=== PATIENT | female | born 1990 | race Hispanic/Latino ===

== ENCOUNTER 2020-08-08 08:28 | Emergency (ER) | payer SELFPAY ==
[2020-08-08 09:16] VITALS: BP 105/60
[2020-08-08 09:21] LABS: Basophils # (Auto) 0.1 K/mm3 (0.0-0.1); Basophils % (Auto) 0.7 % (0.0-1.8); Eosinophils # (Auto) 0.1 K/mm3 (0.0-0.4); Hematocrit 37.8 % (30.3-42.9); Lymphocytes # (Auto) 2.1 K/mm3 (1.2-5.4); Mean Corpuscular HGB Conc 35 % (30-34); Mean Corpuscular Volume 97 fl (79-97); Monocytes # (Auto) 0.7 K/mm3 (0.0-0.8); Monocytes % (Auto) 7.4 % (0.0-7.3); Platelet Count 390 K/mm3 (140-440); Red Blood Count 3.91 M/mm3 (3.65-5.03); Red Cell Distribution Width 12.5 % (13.2-15.2)
[2020-08-08 09:41] LABS: BUN/Creatinine Ratio 19; Blood Urea Nitrogen 15 mg/dL (7-17); Calcium 9.1 mg/dL (8.4-10.2); Hemolysis Index 9
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
[2020-08-08 10:16] LABS: Bilirubin,Urine NEG (Negative); Blood,Urine SM (Negative); Color,Urine Yellow (Yellow); Mucus,Urine 3+ /HPF; Urobilinogen,Urine < 2.0 mg/dL (<2.0)
[2020-08-08 10:21] LABS: HCG Qualitative,Urine Negative (Negative)
[2020-08-08 10:26] LABS: Benzodiazepines Screen,Urine Negative; Cocaine Screen,Urine Negative; Methadone Screen,Urine Negative; Opiate Screen,Urine Negative
[2020-08-08 10:47] LABS: Amphetamine Screen,Urine Positive; Cannabinoid Screen,Urine Positive
== END 2020-08-08 10:45 | disposition left against medical advice (07) ==
LOC: ED 08:28
DX: S09.90XA Unspecified injury of head, initial encounter (principal); E03.9 Hypothyroidism, unspecified; G43.909 Migraine, unspecified, not intractable, without status migrainosus; F15.90 Other stimulant use, unspecified, uncomplicated; F17.200 Nicotine dependence, unspecified, uncomplicated; Z79.899 Other long term (current) drug therapy; Z98.890 Other specified postprocedural states; Z20.822 Contact with and (suspected) exposure to COVID-19; Y04.8XXA Assault by other bodily force, initial encounter; Y93.89 Activity, other specified; Y92.89 Other specified places as the place of occurrence of the external cause; Y99.8 Other external cause status
CPT/HCPCS: 36415; 80048; 80307; 81001; 81025; 85025; 99283; U0003; 80320; G0480

== ENCOUNTER 2020-08-09 11:00 | Emergency (ER) | payer SELFPAY ==
[2020-08-09 11:19] VITALS: BP 91/56
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
== END 2020-08-09 13:33 | disposition left against medical advice (07) ==
LOC: ED 11:00
DX: F25.9 Schizoaffective disorder, unspecified (principal); F17.200 Nicotine dependence, unspecified, uncomplicated; Z00.8 Encounter for other general examination
CPT/HCPCS: 99283

== ENCOUNTER 2020-11-18 08:41 | Emergency (ER) | payer OTHER, SELFPAY ==
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
--- NOTE | 2020-11-18 11:11 | Event Note ---
Date: 11/18/20 I attempted to evaluated the patient today. She is lying down in a deep sleep or just refuses to cooperate. She is in the hallway on the chair bench. The patient slightly arouses after several tactile stimuli but is unable to engage in the evaluation. The patient will be reassessed tomorrow.
[2020-11-18 11:49] LABS: Bacteria,Urine 1+ /HPF (Negative); Bilirubin,Urine NEG (Negative); Blood,Urine SM (Negative); Color,Urine Yellow (Yellow); Mucus,Urine 1+ /HPF; Protein,Urine <15 mg/dL mg/dL (Negative); Urobilinogen,Urine < 2.0 mg/dL (<2.0)
[2020-11-18 11:51] LABS: Cocaine Screen,Urine Negative; Methadone Screen,Urine Negative; Opiate Screen,Urine Negative
[2020-11-18 12:04] LABS: Amphetamine Screen,Urine PRESUMPTIVE POSITIVE; Benzodiazepines Screen,Urine PRESUMPTIVE POSITIVE; Cannabinoid Screen,Urine PRESUMPTIVE POSITIVE
[2020-11-18 14:47] LABS: Basophils # (Auto) 0.1 K/mm3 (0.0-0.1); Basophils % (Auto) 1.1 % (0.0-1.8); Eosinophils % (Auto) 0.6 % (0.0-4.3); Hematocrit 35.6 % (30.3-42.9); Hemoglobin 12.1 gm/dl (10.1-14.3); Lymphocytes # (Auto) 1.8 K/mm3 (1.2-5.4); Lymphocytes % (Auto) 34.3 % (13.4-35.0); Mean Corpuscular HGB Conc 34 % (30-34); Mean Corpuscular Volume 95 fl (79-97); Monocytes # (Auto) 0.3 K/mm3 (0.0-0.8); Monocytes % (Auto) 5.4 % (0.0-7.3); Platelet Count 429 K/mm3 (140-440); Red Blood Count 3.75 M/mm3 (3.65-5.03); Red Cell Distribution Width 12.9 % (13.2-15.2)
[2020-11-18 14:54] LABS: Blood Urea Nitrogen 10 mg/dL (7-17); Calcium 8.5 mg/dL (8.4-10.2); Hemolysis Index 4
[2020-11-18 14:55] LABS: BUN/Creatinine Ratio 17
--- NOTE | 2020-11-19 10:15 | Event Note ---
S: Sleeping O: Stable vital signs A: Acute psychosis patient is medically clear for psychiatric care, polysubstance abuse coronavirus PCR negative P: Awaiting treatment recommendations by psychiatric team
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
[2020-11-19] MEDS ORDERED: risperiDONE 1 MG TAB PO SCH (22:00)
[2020-11-20 08:54] VITALS: BP 110/64
--- NOTE | 2020-11-20 10:00 | Progress Note ---
Subjective - Reason for Consult Consult date: 11/27/20 Reason for consult: psychosis - Chief Complaint Chief complaint: The patient was seen in the [facility] waiting room. The patient reports that she is doing well. She is focused on discharge. She reports sleep and appetite as good. She denies any current suicidal/homicidal ideation and denies hallucinations. Patient is waiting for her father to pick her up. REVIEW OF SYSTEMS Constitutional: Negative for weight loss ENT: Negative for stridor Respiratory: Negative for cough or hemoptysis All other systems reviewed and are negative MENTAL STATUS EXAMINATION General Appearance and Behavior: Age appropriate, wearing appropriate clothes, cooperative, polite with questioning, fair eye contact, calm Cooperation: cooperative Psychomotor Behavior: Psychomotor normal Mood: "good" Affect and affective range: congruent with stated mood Thought Process: goal directed Thought Content: Denies SI Speech: Normal volume, Regular rate and rhythm Suicidal Ideation: Denies Homicidal Ideation: Denies hallucination: Denies Delusions: None elicited Impulse Control: Intact Insight and Judgment: good Memory: Intact Attention: attentive, engaging Orientation: Alert and oriented Diagnoses: Schizophrenia-F20.9 Treatment Plan Continue- Risperdal 1mg po QHS PSYCHOTHERAPY: Supportive psychotherapy provided MEDICAL: Per primary team DELIRIUM PRECAUTIONS: Please re-orient patient frequently, keep lights on during the day, and minimize benzodiazepines and opiates as these medications could worsen patient's confusion. LICENSED OCCUPATIONAL THERAPIST: Per medical team DISPOSITION: Do not recommend acute psychiatric inpatient treatment Will sign off. The patient should be compliant with medications, not to use drugs and not to drink alcohol. The patient understands that if suicidal ideas, homicidal ideas or any endangering thoughts/behavior should arise, they should immediately seek for emergent assistance including but not limited to crisis hot line and emergency room. Follow up with outpatient psychiatry and PCP within 7- 14 day post discharge. Please contact with any questions and/or concerns. Case staffed with Dr. Shah Mental Status Exam - Vital signs Last Vital Signs Temp 98.6 F 11/20/20 08:53 Pulse 80 11/20/20 08:53 Resp 20 11/20/20 08:53 BP 110/64 11/20/20 08:53 Pulse Ox 100 11/20/20 08:53
--- NOTE | 2020-11-20 10:12 | Event Note ---
Date: 11/20/20 Patient has been seen, evaluated, and cleared by psychiatry team. Inpatient placement is no longer recommended at this time. She will be discharged with prescriptions and outpatient follow-up information.
[2020-11-22] MEDS ORDERED: TICAGRELOR 90 MG TAB ONE (14:46)
[2020-11-22] MEDS ORDERED: ALUM-MAG HYDROXIDE-SIMETHICONE 200-200-20MG/5ML ORAL LIQD 30 ML ONE (14:47)
== END 2020-11-20 10:39 | disposition home or self-care (01) ==
LOC: ED 08:41
DX: F23 Brief psychotic disorder (principal); F19.10 Other psychoactive substance abuse, uncomplicated; G43.909 Migraine, unspecified, not intractable, without status migrainosus; E05.90 Thyrotoxicosis, unspecified without thyrotoxic crisis or storm; M35.81 Multisystem inflammatory syndrome; F17.200 Nicotine dependence, unspecified, uncomplicated; Z20.822 Contact with and (suspected) exposure to COVID-19
CPT/HCPCS: 36415; 80048; 80307; 81001; 84703; 85025; 99284; U0003; 80320; G0480